=== PATIENT | male | born 1950 | race Caucasian/White ===

== ENCOUNTER 2016-06-23 15:50 | Emergency (ER) | payer MEDICARE, MEDICAID ==
[~2016-06-23] VITALS: Ht 167.6 cm; Wt 86.0 kg
[~2016-06-23 15:50] MED LIST: ACIDOPHILUS PRO PO; AMLODIPINE10 MG PO; AMLODIPINE5 MG PO; CARDIZEM CD240 MG PO; CARVEDILOL12.5 MG PO; CARVEDILOL25 MG PO; CARVEDILOL6.25 MG PO; CIPROFLOXACN500 MG PO; CLOPIDOGREL75 MG PO; DOCUSATE SOD100 M2 PO; DOXAZOSIN4 MG PO; FERROUS SULF325 M1 PO; GABAPENTIN800 MG PO; LANTUS100 MG/ML SC; LASIX 40 MG40 MG/TAB PO; LEVAQUIN500 MG PO; LISINOPRIL20 MG PO; LOSARTAN POTASS50 MG PO; NEPHROCAPS QT PO; NOVOLOG100 IU/1 M SC; RENAL PO; SENNA-TABS8.6 MG PO; SIMVASTATIN5 MG PO; ULTRAM50 M1 PO; ZOVIRAX200 MG PO
[2016-06-23] MEDS ORDERED: LEVOTHYROXIN125 MCG PO (16:58)
[2016-06-23] MEDS ORDERED: RENVELA800 MG PO (16:59)
[2016-06-23] MEDS ORDERED: ROCALTROL0.25 MCG PO (17:00)
[2016-06-23] MEDS ORDERED: CETIRIZINE10 MG PO (17:00)
[2016-06-23] MEDS ORDERED: DEMADEX20 MG PO (17:03)
[2016-06-23] MEDS ORDERED: RENAL PO (17:04)
[2016-06-23] MEDS ORDERED: NOVOLOG100 IU/1 M SC (17:10)
[2016-06-23 17:26] LABS: HEMATOCRIT 37.2 % (39.0-50.0); HEMOGLOBIN 11.9 g/dl (14.0-18.0); IMMATURE GRANULOCYTES 0.2 % (0.0-1.0); MEAN CELL VOLUME 95.1 fL CALC (80.0-100.0); MEAN CORPUSCULAR HGB 30.4 pG CALC (26.0-32.0); NEUT# 3.04 thou/uL (1.82-7.42); RED BLOOD COUNT 3.91 mill/uL (4.70-6.10); RED CELL DISTRI WIDTH 13.1 % (11.5-15.5)
[2016-06-23 17:35] LABS: BILIRUBIN, TOTAL 0.5 mg/dL (0.0-1.4); CALCIUM 8.7 mg/dL (8.4-10.2); TOTAL PROTEIN 7.7 g/dL (6.3-8.2)
[2016-06-23 17:40] LABS: POTASSIUM 5.6 mmol/l (3.5-5.1)
[2016-06-23] MEDS ORDERED: ULTRAM50 M1 PO (18:52)
[2016-06-23] MEDS ORDERED: STERAPRED DS10 MG PO (18:52)
[2016-06-23 18:54] LABS: URINE BILIRUBIN - DIPSTICK NEGATIVE (NEGATIVE); URINE BLOOD DIPSTICK TRACE-INTACT (NEGATIVE); URINE CLARITY CLEAR; URINE COLOR YELLOW; URINE GLUCOSE - DIPSTICK NEGATIVE (NEGATIVE); URINE KETONE NEGATIVE (NEGATIVE); URINE LEUK ESTERASE NEGATIVE (NEGATIVE); URINE NITRITE - DIPSTICK NEGATIVE (Negative); URINE PH 5.5 (4.5-8.0); URINE PROTEIN - DIPSTICK TRACE mg/dL (NEG-TRACE); URINE UROBILINOGEN - DIPSTICK 0.2 E.U./dL (0.2)
[2016-06-23 18:55] LABS: BARBITURATES NEGATIVE (NEGATIVE); COCAINE NEGATIVE (NEGATIVE); METHADONE NEGATIVE (NEGATIVE); OXCYCODONE NEGATIVE (NEGATIVE); TETRAHYDROCANNABIONOL NEGATIVE (NEGATIVE); TRICYLIC ANTIDEPRESSANTS NEGATIVE (NEGATIVE)
[2016-06-23 19:11] VITALS: BP 170/84
== END 2016-06-23 19:11 | disposition home or self-care (01) ==
LOC: ED 15:50
PROVIDERS: Emergency Medicine
DX: R51 Headache (principal); H57.8 Other specified disorders of eye and adnexa; I12.0 Hypertensive chronic kidney disease with stage 5 chronic kidney disease or end stage renal disease; N18.6 End stage renal disease; Z99.2 Dependence on renal dialysis; R70.0 Elevated erythrocyte sedimentation rate

== ENCOUNTER 2016-10-14 22:42 | Emergency (ER) | payer MEDICARE, MEDICAID ==
[~2016-10-14] VITALS: Ht 167.6 cm; Wt 81.8 kg
[~2016-10-14 22:42] MED LIST changes: +CETIRIZINE10 MG PO; +DEMADEX20 MG PO; +FERR SULFATE325 MG PO; -FERROUS SULF325 M1 PO; +LEVOTHYROXIN137 MCG PO; +NOVOLOG FL100 UNIT/M SC; +RENVELA800 MG PO; +ROCALTROL0.25 MCG PO; +STERAPRED DS10 MG PO
[2016-10-14] MEDS ORDERED: PROCRIT4000 UNIT/ SC (23:33)
[2016-10-14] MEDS ORDERED: PERCOCET 5/321 COMBO PO (23:37)
[2016-10-14] MEDS ORDERED: ZOFRAN4 MG/TAB PO (23:38)
[2016-10-14] MEDS ORDERED: ACIDOPHILUS1 CAP PO (23:44)
[2016-10-14 23:48] LABS: HEMATOCRIT 32.4 % (39.0-50.0); HEMOGLOBIN 10.5 g/dl (14.0-18.0); IMMATURE GRANULOCYTES 0.2 % (0.0-1.0); MEAN CORPUSCULAR HGB 31.4 pG CALC (26.0-32.0); MEAN CORPUSCULAR HGB CONC 32.4 g/L CALC (32.0-36.0); NEUT# 3.72 thou/uL (1.82-7.42); RED BLOOD COUNT 3.34 mill/uL (4.70-6.10); RED CELL DISTRI WIDTH 13.4 % (11.5-15.5)
[2016-10-14 23:51] LABS: ALBUMIN 4.2 g/dL (3.2-5.0); BILIRUBIN, TOTAL 0.7 mg/dL (0.0-1.4); CALCIUM 7.9 mg/dL (8.4-10.2); TOTAL PROTEIN 7.2 g/dL (6.3-8.2)
[2016-10-14 23:58] LABS: CREATININE 7.9 mg/dL (0.7-1.3); POTASSIUM 6.8 mmol/l (3.5-5.1)
[2016-10-15 01:30] VITALS: BP 122/68
== END 2016-10-15 01:36 ==
LOC: ED 22:42
PROVIDERS: Emergency Medicine
DX: N19 Unspecified kidney failure (principal); E87.5 Hyperkalemia; R50.9 Fever, unspecified; R53.1 Weakness; E10.9 Type 1 diabetes mellitus without complications; Z79.4 Long term (current) use of insulin; R94.31 Abnormal electrocardiogram [ECG] [EKG]